=== PATIENT | female | born 1995 | race Caucasian/White ===

== ENCOUNTER 2023-07-24 16:46 | Emergency (ER) | payer BC ==
[~2023-07-24] VITALS: Ht 160 cm; Wt 61.4 kg
[~2023-07-24 16:46] MED LIST: ZOFRAN ODT4 MG PO
[2023-07-24 16:59] VITALS: TEMP 97.4
[2023-07-24] MEDS ORDERED: hydrOXYzine HCl 25 MG TAB PO ONE (17:30)
[2023-07-24] MEDS ORDERED: ATARAX 25MG25 MG/TAB PO (18:27)
[2023-07-24 18:40] VITALS: BP 129/74; PULSE 89
== END 2023-07-24 18:40 | disposition home or self-care (01) ==
LOC: COL.ER 16:46
DX: R45.1 Restlessness and agitation (principal)